=== PATIENT | male | born 1965 | race Caucasian/White ===

== ENCOUNTER 2022-01-17 08:09 | Outpatient (CLI) | payer BC, OTHER | END 2022-01-17 08:10 | disposition home or self-care (01) | LOC: BURRAD 08:09 | PROVIDERS: ATTEND Registered Nurse Hospice | DX: M79.672 Pain in left foot (principal); M77.32 Calcaneal spur, left foot ==

== ENCOUNTER 2025-01-25 08:38 | Outpatient (CLI) | payer OTHER ==
[2025-01-25 09:05] LABS: Hematocrit 48.1 % (42.0-52.0); Hemoglobin 16.0 g/dL (14.0-18.0); MDiff Complete? YES; Mean Corpuscular Hemoglobin 28.8 pg (27.0-31.0); Mean Corpuscular Volume 86.4 fl (78.0-98.0); Platelet Count 211 10x3/uL (130-400); Red Blood Cell (RBC) Count 5.56 mill/uL (4.70-6.10); White Blood Cell (WBC) Count 5.1 10x3/uL (4.8-10.8)
== END 2025-01-25 08:39 | disposition home or self-care (01) ==
LOC: BURLAB 08:38
PROVIDERS: ATTEND Physician Assistant
DX: E29.1 Testicular hypofunction (principal); R53.83 Other fatigue
CPT/HCPCS: 36415; 82670; 84403; 85025